=== PATIENT | female | born 1995 | race African-American/Black ===

== ENCOUNTER 2022-09-23 09:29 | Emergency (ER) | payer OTHER, SELFPAY ==
[2022-09-23 09:37] VITALS: BP 120/71
[2022-09-23 09:38] VITALS: PULSE 79; O2SAT 100
[2022-09-23 09:40] VITALS: BP 120/71; PULSE 79; RESP 16; TEMP 36.6; O2SAT 100; BMI 19.5
--- NOTE | 2022-09-23 10:07 | ED.FEMALEGU ---
HPI - Female Genitourinary General Chief complaint: Urogenital-Female Stated complaint: pelvic/ abd pain for 1 week Time Seen by Provider: 09/23/22 09:42 Source: patient Mode of arrival: Ambulatory History of Present Illness HPI Narrative: Patient is a healthy 27-year-old female currently trying to get but on the 2nd day of her menstrual cycle presenting today with ongoing severe lower pelvic pain and back pain. It has been ongoing for about 1 week. She has had sweats and chills but not had any fever. She denies any vaginal discharge. Overall quite tender took ibuprofen yesterday without much relief. Her menstrual cycle is on day 2. So it is heavy but she reports her menstrual cycles are not significantly heavy. She did have blood work done at a clinic about a month ago showing that she was iron deficient and vitamin-D deficient. Related Data Previous Rx's Medication Instructions Recorded hydrocodone 5 mg-acetaminophen 325 1 tab PO Q6H PRN pain #10 tabs 09/23/22 mg tablet Allergies Allergy/AdvReac Type Severity Reaction Status Date / Time No Known Drug Allergies Allergy Verified 09/23/22 09:44 Review of Systems Review of Systems ROS Unobtainable: All systems reviewed & are unremarkable except as noted in HPI and below Patient History tobacco type: cigarettes and vaping alcohol intake frequency: 0-2 drinks per day Substance Use Type: does not use Exam Initial Vital Signs Initial Vital Signs: Vital Signs Blood Pressure 120/71 09/23/22 09:37 GENERAL: Alert 27-year-old female appears uncomfortable HEENT: Head atraumatic,EOMI, pupils reactive, face symmetric, moist mucous membranes CARDIOVASCULAR: Regular rate and rhythm without murmurs, rubs or gallops. RESPIRATORY: Breath sounds equal bilaterally, no wheezes rales or rhonchi. ABDOMEN: Soft, tender all across lower abdomen suprapubic area PELVIC: External genitalia is normal, vaginal bleeding patient did not tolerate speculum exam not able to get a visual. I did the swabs and manual exam was more tender on right adnexa fentanyl left. Manual examined also extremely tender : No CVA tenderness EXTREMITIES: Normal range of motion, no clubbing or edema. Neurovascularly intact NEUROLOGICAL: Alert and oriented x4. SKIN: Warm, dry, no laceration, no petechiae, no rashes or lesions. Course Orders Ordered: ED Orders 09/23/22 10:00 CBC Auto Diff [Complete Blood Count AUTO DIFF] Stat CMP [Comprehensive Metabolic Panel] Stat Lactate (Lactic Acid) Stat Lipase Stat 09/23/22 10:11 Chlamydia Gonorrhea PCR -URINE Stat Urine Microscopic Stat 09/23/22 10:20 Chlamydia/Gonoc/Myco Genital Stat Wet Prep Tric BV Sherice Stat 09/23/22 10:24 CT abdomen pelvis w con Stat US pelvic complete Stat Discontinued Medications Hydromorphone HCl (Hydromorphone 0.5 Mg Inj) 0.5 mg IV NOW ONE Stop: 09/23/22 12:11 Last Admin: 09/23/22 12:25 Dose: 0.5 mg Documented By: RAMAN Ketorolac Tromethamine (Ketorolac 30 Mg/Ml Vial) 15 mg IV NOW ONE Stop: 09/23/22 10:25 Last Admin: 09/23/22 10:32 Dose: 15 mg Documented By: RAINA Morphine Sulfate (Morphine 2 Mg/Ml Inj) 2 mg IV NOW ONE Stop: 09/23/22 10:25 Last Admin: 09/23/22 10:32 Dose: 2 mg Documented By: RAINA Vital Signs Vital signs: Vital Signs - 8 hr 09/23/22 12:07 09/23/22 12:07 Pulse Rate 60 Blood Pressure 109/67 Pulse Oximetry 100 MDM - Female Genitourinary Lab Data 09/23/22 10:00 09/23/22 10:00 Labs: Lab Results 09/23/22 09/23/22 09/23/22 Range/Units 10:00 10:00 10:00 WBC 6.4 (4.5-11.0) X10^3/uL RBC 3.79 L (4.0-5.2) X10^6/uL Hgb 11.6 L (12.0-16.0) g/dL Hct 34.8 L (36-46) % MCV 91.8 (80-100) fL MCH 30.7 (26-34) PG MCHC 33.4 (30-36) % RDW 13.3 (11.6-14.8) % Plt Count 246 (150-400) X10^3/uL Neut % (Auto) 57.4 (50-75) % Lymph % (Auto) 30.4 (25-40) % [place] % (Auto) 9.4 (3-14) % Eos % (Auto) 2.2 (2-4) % Baso % (Auto) 0.6 (0-2) % Neut # (Auto) 3700 (6416-5146) /uL Lymph # (Auto) 2000 (8803-5110) /uL [place] # (Auto) 600 (0-900) /uL Eos # (Auto) 100 (0-450) /uL Baso # (Auto) 0 (0-100) /uL Sodium 137 (137-145) mmol/L Potassium 3.7 (3.4-5.1) mmol/L Chloride 107 (98-107) mmol/L Carbon Dioxide 23 (22-32) mmol/L BUN 11 (7-17) mg/dL Creatinine 0.63 (0.52-1.04) mg/dL Estimated GFR > 60 (>60) mL/min BUN/Creatinine Ratio 17.5 (6-22) Glucose 99 (70-100) mg/dL Lactate 1.4 (0.7-2.1) mmol/L Calcium 8.7 (8.4-10.2) mg/dL Total Bilirubin < 0.1 L (0.2-1.3) mg/dL AST 49 H (14-36) IU/L ALT 31 (<35) IU/L Alkaline Phosphatase 76 (38-126) U/L Total Protein 7.8 (6.3-8.2) g/dL Albumin 4.0 (3.5-5.0) g/dL Globulin 3.8 (1.7-4.1) g/dL Albumin/Globulin Ratio 1.1 (1.0-2.8) Lipase 78 (23-300) U/L Urine RBC (0-5/HPF) Urine WBC (0-5/HPF) Ur Squamous Epith Cells (0-5/HPF) Amorphous Sediment Urine Bacteria (None) Ur Culture Indicated? Ur Chlamydia DNA (PCR) N gonorrhoeae DNA (PCR) 09/23/22 09/23/22 Range/Units 10:11 10:11 WBC (4.5-11.0) X10^3/uL RBC (4.0-5.2) X10^6/uL Hgb (12.0-16.0) g/dL Hct (36-46) % MCV (80-100) fL MCH (26-34) PG MCHC (30-36) % RDW (11.6-14.8) % Plt Count (150-400) X10^3/uL Neut % (Auto) (50-75) % Lymph % (Auto) (25-40) % [place] % (Auto) (3-14) % Eos % (Auto) (2-4) % Baso % (Auto) (0-2) % Neut # (Auto) (5131-6576) /uL Lymph # (Auto) (4502-8909) /uL [place] # (Auto) (0-900) /uL Eos # (Auto) (0-450) /uL Baso # (Auto) (0-100) /uL Sodium (137-145) mmol/L Potassium (3.4-5.1) mmol/L Chloride (98-107) mmol/L Carbon Dioxide (22-32) mmol/L BUN (7-17) mg/dL Creatinine (0.52-1.04) mg/dL Estimated GFR (>60) mL/min BUN/Creatinine Ratio (6-22) Glucose (70-100) mg/dL Lactate (0.7-2.1) mmol/L Calcium (8.4-10.2) mg/dL Total Bilirubin (0.2-1.3) mg/dL AST (14-36) IU/L ALT (<35) IU/L Alkaline Phosphatase (38-126) U/L Total Protein (6.3-8.2) g/dL Albumin (3.5-5.0) g/dL Globulin (1.7-4.1) g/dL Albumin/Globulin Ratio (1.0-2.8) Lipase (23-300) U/L Urine RBC 10-30/hpf H (0-5/HPF) Urine WBC 0-1/hpf (0-5/HPF) Ur Squamous Epith Cells 1-5 /hpf (0-5/HPF) Amorphous Sediment 1+ Urine Bacteria None seen (None) Ur Culture Indicated? Cult not indicated Ur Chlamydia DNA (PCR) Not detected N gonorrhoeae DNA (PCR) Not detected Point of Care Testing Test Results Negative Urine Dip Bedside Urine Glucose Negative Bedside Urine Bilirubin - Negative Bedside Urine Ketone - Negative Urine Specific Celeste 1.025 Bedside Urine Occult Blood +++ Bedside Urine pH 6.0 Bedside Urine Protein - Negative Bedside Urine Urobilinogen +/- 1mg Bedside Urine Nitrite - Negative Bedside Urine Leukocytes - Negative Esterase Imaging Data US - PRINT MACHINE OPERATOR: Radiologist's Impression: PROCEDURE:? US PELVIC COMPLETE ? INDICATIONS:? PAIN, BLEEDING, FEVER ? TECHNIQUE:? Real-time scanning was performed of the pelvic organs, with image documentation.? Additional endovaginal scanning was necessary due to incomplete visualization of the adnexal and endometrial structures by transabdominal scanning.? ? COMPARISON:? None. ? FINDINGS:? ?? Uterus:? Uterus is anteverted and normal in size at 8.8 x 3.9 x 4.6 cm. The myometrium is homogeneous. ? The endometrium measures 10.4 mm combined thickness.? ? Ovaries:? The right ovary measures 2.6 x 2.0 x 2.8 cm, with a calculated ovarian volume of 7.3 cc. The left ovary measures 2.1 x 2.3 x 2.3 cm, with a calculated ovarian volume of 5.8 cc. The ovaries have a normal sonographic appearance. Less than 12 follicles can be seen in each ovary.? No adnexal masses are seen. ? Other:? No pathologic free abdominal or pelvic fluid. ? ? IMPRESSION:? ? Normal pelvic ultrasound ? ? Approved by: Franck Miller M.D. on 09/23/2022 at 11:15? CT scan - abdomen/pelvis: Radiologist's Impression: PROCEDURE:? CT ABDOMEN PELVIS W CON ? INDICATIONS:? pelvic pain fever ? TECHNIQUE:? After the administration of intravenous contrast, axial sections acquired from the lung bases to the pubic symphysis.? Coronal and sagittal reformats were performed.? For radiation dose reduction, the following was used:? automated exposure control, adjustment of mA and/or kV according to patient size.? ? COMPARISON:? None. ? FINDINGS: ? Lower thorax: The lung bases are clear.? Heart size normal.? No hiatal hernia. ? Liver:? Normal in size and attenuation. No contour deformity present. ? Biliary system:? No calcified cholelithiasis or pericholecystic inflammation.? No intra or extrahepatic bile duct dilatation. ? Pancreas:? Unremarkable without mass or inflammation evident. ? Spleen:? Normal in size and density. ? Adrenals:? Normal morphology and density. ? Reproductive system:? Unremarkable as visualized. ? Urinary system:? Normal renal size and attenuation. No renal calculi, hydronephrosis, or solid mass present.? Urinary bladder unremarkable. ? Gastrointestinal system:? The bowel is unremarkable without evidence of bowel obstruction or inflammation. The stomach appears unremarkable. ? Appendix:? No findings to suggest acute appendicitis. ? Peritoneal spaces:? No mesenteric or retroperitoneal adenopathy.? No free air.? No free fluid.? ? Vasculature:? The IVC, aorta and iliac vasculature are unremarkable. ? Abdominal wall:? Abdominal wall intact without evidence of ventral or inguinal hernias. ? Musculoskeletal:? Normal bone mineralization.? No acute fractures.? ? IMPRESSION: ? 1. Unremarkable CT abdomen and pelvis.? No acute findings. ? Approved by: Franck Miller M.D. on 09/23/2022 at 11:23? [facility] Narrative Medical decision making narrative: Patient is a 27-year-old female who was actually trying to get but on her menstrual cycle presenting with lower pelvic pain ongoing for about 1 week. She is no leukocytosis mild anemia no electrolyte abnormality or RYLIE. She is not . Pelvic ultrasound does not show any abnormality no ovarian cyst abscess or torsion. CT confirms also no abdominal abnormality without appendicitis diverticulitis nephrolithiasis pyelonephritis obstruction or other etiology. Gonorrhea chlamydia is also negative. Pelvic exam was extremely tender, unable to visualize however swabs were obtained. At this time unclear what is causing her pain. Possible endometriosis however she did have this kind of pain last month. Currently trying to get but her is negative and ultrasound does not show any IUP or concern for ectopic. Discharge Plan Departure Patient Disposition: Home Clinical Impression: Abdominal pain Instructions: DI for Abdominal Pain-Adult Activity Restrictions/Additional Instructions: *You have been diagnosed with abdominal pain *What to do: At this time ultrasound CT and blood work do not show any abnormality. Possible early endometriosis. Please follow-up with artistic associate *Continue to take medications as directed Motrin 800 mg every 8 hours if needed for [id number] pain Severance 1 tab every 6 hours if needed for severe pain--[facility] *Follow up with your primary care provider in 2-3 days or call [phone] *Return to ER if you should have increasing pain heavy bleeding more than 2 super pads or tampons in 1 hour dizziness lightheadedness or any new, worsening or concerning symptoms CONTROLLED SUBSTANCE DISCHARGE (Narcotoic/benzodiazepine/Flexeril/Phenergan) 1. You have been prescribed narcotic medications, it does have acetaminophen/Tylenol/paracetamol in it, DO NOT TAKE MORE THAN 4,00mg in 24 hours of Tylenol. TRAMADOL DOES NOT CONTAIN TYLENOL 2. Please understand that we cannot provide further refills of narcotics, benzodiazepines or controlled substances through the ED and her pain management will need to be through your provider. 3. While on these medications you cannot drive or operate heavy machinery. 4. You cannot sign legal documents or perform any duties such as this. 5. As long as you're taking opiate pain medications he should also be taking a stool softener such as Colace, Dulcolax, MiraLAX or prune juice, to help avoid constipation. Prescriptions: New hydrocodone-acetaminophen 5-325 mg tablet 1 tab PO Q6H PRN (Reason: pain) Qty: 10 0RF Referrals: ProviderNoel [Primary Care Provider] - Stand Alone Forms: Patient Portal/API, Work Release Note
--- NOTE | 2022-09-23 10:24 | DI.US.S_ITS ---
PROCEDURE: US PELVIC COMPLETE INDICATIONS: PAIN, BLEEDING, FEVER TECHNIQUE: Real-time scanning was performed of the pelvic organs, with image documentation. Additional endovaginal scanning was necessary due to incomplete visualization of the adnexal and endometrial structures by transabdominal scanning. COMPARISON: None. FINDINGS: Uterus: Uterus is anteverted and normal in size at 8.8 x 3.9 x 4.6 cm. The myometrium is homogeneous. The endometrium measures 10.4 mm combined thickness. Ovaries: The right ovary measures 2.6 x 2.0 x 2.8 cm, with a calculated ovarian volume of 7.3 cc. The left ovary measures 2.1 x 2.3 x 2.3 cm, with a calculated ovarian volume of 5.8 cc. The ovaries have a normal sonographic appearance. Less than 12 follicles can be seen in each ovary. No adnexal masses are seen. Other: No pathologic free abdominal or pelvic fluid. IMPRESSION: Normal pelvic ultrasound Approved by: Franck Miller M.D. on 09/23/2022 at 11:15
--- NOTE | 2022-09-23 10:24 | DI.CT.S_ITS ---
PROCEDURE: CT ABDOMEN PELVIS W CON INDICATIONS: pelvic pain fever TECHNIQUE: After the administration of intravenous contrast, axial sections acquired from the lung bases to the pubic symphysis. Coronal and sagittal reformats were performed. For radiation dose reduction, the following was used: automated exposure control, adjustment of mA and/or kV according to patient size. COMPARISON: None. FINDINGS: Lower thorax: The lung bases are clear. Heart size normal. No hiatal hernia. Liver: Normal in size and attenuation. No contour deformity present. Biliary system: No calcified cholelithiasis or pericholecystic inflammation. No intra or extrahepatic bile duct dilatation. Pancreas: Unremarkable without mass or inflammation evident. Spleen: Normal in size and density. Adrenals: Normal morphology and density. Reproductive system: Unremarkable as visualized. Urinary system: Normal renal size and attenuation. No renal calculi, hydronephrosis, or solid mass present. Urinary bladder unremarkable. Gastrointestinal system: The bowel is unremarkable without evidence of bowel obstruction or inflammation. The stomach appears unremarkable. Appendix: No findings to suggest acute appendicitis. Peritoneal spaces: No mesenteric or retroperitoneal adenopathy. No free air. No free fluid. Vasculature: The IVC, aorta and iliac vasculature are unremarkable. Abdominal wall: Abdominal wall intact without evidence of ventral or inguinal hernias. Musculoskeletal: Normal bone mineralization. No acute fractures. IMPRESSION: 1. Unremarkable CT abdomen and pelvis. No acute findings. Approved by: Franck Miller M.D. on 09/23/2022 at 11:23
--- NOTE | 2022-09-23 10:27 | PC.NURSE ---
Assisted Dr Miranda with pelvic and specimens sent to lab.
[2022-09-23] MEDS: MORPHINE 2 MG/ML INJ IV (10:32)
[2022-09-23] MEDS: KETOROLAC 30 MG/ML VIAL 15 MG IV (10:32)
[2022-09-23 10:34] LABS: Amorphous Sediment Urine 1+; Bacteria Urine None Seen; Culture Indicated Urine Cult Not Indicated; RBC Urine 10-30/HPF (0-5/HPF); Squamous Epithelial Cell Urine 1-5 /HPF (0-5/HPF); WBC Urine 0-1/HPF (0-5/HPF)
[2022-09-23 10:40] LABS: Add Manual Diff / Slide Review NO; Basophils Absolute Auto 0 /uL (0-100); Basophils Percent Auto 0.6 % (0-2); Eosinophils Absolute Auto 100 /uL (0-450); Eosinophils Percent Auto 2.2 % (2-4); Hematocrit 34.8 % (36-46); Hemoglobin 11.6 g/dL (12.0-16.0); Lymphocytes Absolute Auto 2000 /uL (1100-4500); Lymphocytes Percent Auto 30.4 % (25-40); Mean Corpuscular HGB Conc 33.4 % (30-36); Mean Corpuscular Hemoglobin 30.7 PG (26-34); Mean Corpuscular Volume 91.8 fL (80-100); Monocytes Absolute Auto 600 /uL (0-900); Monocytes Percent Auto 9.4 % (3-14); Neutrophils Absolute Auto 3700 /uL (1500-7000); Neutrophils Percent Auto 57.4 % (50-75); Platelet Count 246 X10^3/uL (150-400); Red Blood Cell Count 3.79 X10^6/uL (4.0-5.2); Red Cell Distribution Width 13.3 % (11.6-14.8); White Blood Cell Count 6.4 X10^3/uL (4.5-11.0)
[2022-09-23 10:45] LABS: Lactate (Lactic Acid) 1.4 mmol/L (0.7-2.1)
[2022-09-23 10:46] LABS: Alanine Aminotransferase 31 IU/L (<35); Albumin Globulin Ratio 1.1 (1.0-2.8); Alkaline Phosphatase 76 U/L (38-126); Aspartate Aminotransferase 49 IU/L (14-36); BUN Creatinine Ratio 17.5 (6-22); Bilirubin Total < 0.1 mg/dL (0.2-1.3); Blood Urea Nitrogen 11 mg/dL (7-17); Calcium 8.7 mg/dL (8.4-10.2); Carbon Dioxide 23 mmol/L (22-32); Chloride 107 mmol/L (98-107); Estimated Glomerular Filt Rate > 60 mL/min (>60); Globulin 3.8 g/dL (1.7-4.1); Glucose 99 mg/dL (70-100); HEMOLYSIS < 15 (0-50); Lipase 78 U/L (23-300); Potassium 3.7 mmol/L (3.4-5.1); Sodium 137 mmol/L (137-145); Total Protein 7.8 g/dL (6.3-8.2)
[2022-09-23 12:00] LABS: Urine N gonorrhoeae NOT DETECTED
[2022-09-23 12:07] VITALS: BP 109/67; PULSE 60; O2SAT 100
[2022-09-23 12:10] LABS: Urine Chlamydia NOT DETECTED
[2022-09-23] MEDS: HYDROMORPHONE 0.5 MG INJ IV (12:25)
[2022-09-29 05:38] LABS: Chlamydia trachomatis Negative (Negative); Mycoplasma genitalium Negative (Negative); Neisseria gonorrhoeae Negative (Negative)
== END 2022-09-23 13:10 | disposition home or self-care (01) ==
PROVIDERS: Emergency Provider Emergency Medicine
DX: R10.2 Pelvic and perineal pain (principal); R50.9 Fever, unspecified
CPT/HCPCS: 36415; 74177; 76830; 76856; 80053; 81003; 81015; 81025; 83605; 83690; 85025; 87210; 87491; 87563; 87591; 93975; 96374; 96375; 99284; 99285; J1170; J1885; J2270; Q9967